=== PATIENT | female | born 1925 | race Hispanic/Latino ===

== ENCOUNTER 2017-03-08 14:28 | Inpatient (IN) | payer MEDICARE ==
--- NOTE | 2017-03-08 15:14 | RAD ---
HISTORY: cough COMPARISON: 05/31/2016 FINDINGS: LUNGS: No active pulmonary disease. PLEURA: No significant pleural effusion identified, no pneumothorax apparent. CARDIOVASCULAR: Normal. OSSEOUS STRUCTURES: No significant abnormalities. VISUALIZED UPPER ABDOMEN: Normal. OTHER FINDINGS: None. IMPRESSION: No active disease.
[2017-03-08 15:41] LABS: ADD MANUAL DIFF? NO
[2017-03-08 15:58] LABS: INR 2.44 (0.93-1.08); PARTIAL THROMBOPLASTIN TIME 34.7 Seconds (23.7-30.8)
[2017-03-08 15:59] LABS: BASO # 0.02 K/mm3 (0.0-2.0); BASO % 0.7 % (0.0-3.0); EOS # 0.1 (0.0-0.7); EOS % 2.5 % (1.5-5.0); GRAN # 0.84 (1.4-6.5); GRAN % 29.7 % (50.0-68.0); HEMATOCRIT 40.2 % (36.0-48.0); LYMPH # 1.5 (1.2-3.4); LYMPH % 52.3 % (22.0-35.0); MEAN CELL VOLUME 85.9 fL (80.0-105.0); MEAN CORPUSCULAR HEMOGLOBIN 29.5 pg (25.0-35.0); MEAN CORPUSCULAR HGB CONC 34.3 g/dl (31.0-37.0); MONO # 0.4 (0.1-0.6); MONO % 14.8 % (1.0-6.0); PLATELET COUNT 174 10^3/uL (120.0-450.0); RED CELL DISTRIBUTION WIDTH 13.5 % (11.5-14.5)
[2017-03-08 16:02] LABS: ALB/GLOB RATIO 1.1 (1.1-1.8); ALKALINE PHOSPHATASE 80 U/L (38-133); ALT/SGPT 43 U/L (7-56); AST/SGOT 32 U/L (15-39); BILIRUBIN,TOTAL 1.1 mg/dL (0.2-1.3); BLOOD UREA NITROGEN 19 mg/dL (7-21); CALCIUM 9.4 mg/dL (8.4-10.5); CARBON DIOXIDE 25 mmol/L (21-33); CHLORIDE 103 mmol/L (98-107); GFR AFRICAN-AMERICAN > 60; GLUCOSE,RANDOM 150 mg/dL (70-110); POTASSIUM 4.7 mmol/L (3.6-5.0); SODIUM 137 mmol/L (132-148); TOTAL PROTEIN 7.4 g/dL (5.8-8.3)
[2017-03-08 16:15] LABS: WHITE BLOOD COUNT 2.8 10^3/ul (4.5-11.0)
[2017-03-08 16:16] LABS: TROPONIN I < 0.01 ng/mL
--- NOTE | 2017-03-08 17:00 | ED PDOC ---
Arrival/HPI - General Chief Complaint: Back Pain Time Seen by Provider: 03/08/17 14:56 - History of Present Illness Narrative History of Present Illness (Text): 03/08/17 16:55 89-year-old female with on and off left upper back discomfort the last 2 weeks. Patient states that this usually happens in the morning, and is nonexertional but is also not positional. She denies chest pain, shortness of breath, dyspnea on exertion. Pain is unreproducible. Denies abdominal pain, nausea, vomiting, fevers or chills. Past Medical History - Provider Review Nursing Documentation Reviewed: Yes - Infectious Disease Hx of Infectious Diseases: None - Cardiac Hx Cardiac Disorders: Yes (AFIB) Hx Hypertension: Yes - Pulmonary Hx Respiratory Disorders: No - Neurological Hx Neurological Disorder: No - HEENT Hx HEENT Disorder: No Hx Cataracts: Yes - Renal Hx Renal Disorder: No - Endocrine/Metabolic Hx Endocrine Disorders: No - Hematological/Oncological Hx Blood Disorders: No - Integumentary Hx Dermatological Disorder: No - Musculoskeletal/Rheumatological Hx Rheumatoid Arthritis: Yes - Gastrointestinal Hx Gastrointestinal Disorders: Yes Hx Diverticulitis: Yes (DIVERTICULOSIS) - Genitourinary/Gynecological Hx Genitourinary Disorders: No - Psychiatric Hx Substance Use: No - Surgical History Other/Comment: RIGHT TEMPORAL SKIN CA -SX - Anesthesia Hx Anesthesia: Yes Hx Anesthesia Reactions: No Hx Malignant Hyperthermia: No Family/Social History Family/Social History: No Known Family HX Smoking Status: Never Smoked Hx Alcohol Use: No Hx Substance Use: No Allergies/Home Meds Allergies/Adverse Reactions: Allergies No Known Allergies Allergy (Verified 06/04/16 14:44) Home Medications: Home Meds Medication Instructions Recorded Confirmed Folic Acid 1 mg PO DAILY 01/02/16 06/05/16 Physical Exam - Physical Exam Narrative Physical Exam (Text): 03/08/17 16:56 - Review of Systems Constitutional: Normal. absent: Fatigue, Weight Change, Fevers Eyes: Normal ENT: denies sore throat, denies tristhmus Respiratory: Normal. absent: SOB, Cough, Sputum Cardiovascular: absent: Chest Pain, Palpitations, Syncope Gastrointestinal: Normal. absent: Abdominal Pain, Diarrhea, Nausea, Vomiting Genitourinary: Normal. absent: Dysuria, Frequency, Hematuria, vaginal bleeding Musculoskeletal: Back pain. absent: Arthralgias, Neck Pain Skin: no rashes, no erythema Neurological: absent: Focal Weakness Endocrine: Normal Hemo/Lymphatic: Normal Psychiatric: No suicidal or homicidal ideations Physical exam Patient appears age appropriate in no distress, speaking full sentences without difficulty - Systems Exam Head: Present: Atraumatic, Normocephalic Pupils: Present: PERRL Extroacular Muscles: Present: EOMI Conjunctiva: Present: Normal Mouth: Present: Moist Mucous Membranes Neck: Present: Normal Range of Motion. No: MIDLINE TENDERNESS, Paraspinal Tenderness Respiratory/Chest: Present: Clear to Auscultation, Good Air Exchange. No: Respiratory Distress, Accessory Muscle Use, Tachypneic Cardiovascular: Present: Regular Rate and Rhythm, Normal S1, S2, Peripheal Pulses Present. No: Murmurs Abdomen: Present: Normal Bowel Sounds. No: Tenderness, Distention, Peritoneal Signs, Rebound, Guarding Back: Present: Normal Inspection. No: Midline Tenderness, Paraspinal Tenderness Upper Extremity: Present: Normal Inspection. No: Cyanosis, Edema Lower Extremity: Present: Normal Inspection. No: Edema Neurological: Present: GCS=15, Speech Normal, cranial nerves II through XII fully intact with no cerebellar abnormality, neurosensory fully intact. No focal neurological deficits. Skin: Present: Warm, Dry, Normal Color. No: Rashes Lymphatic: Present: OX3, NI, NC Psychiatric: Present: Alert, Oriented x 3, Normal Insight, Normal Concentration Vital Signs Reviewed: Yes Vital Signs Temp Pulse Resp BP Pulse Ox 03/08/17 15:15 98.1 F 67 16 181/82 H 98 Temperature: Afebrile Blood Pressure: Hypertensive (Asymptomatic) Pulse: Regular Respiratory Rate: Normal Appearance: Positive for: Well-Appearing Pain Distress: None Mental Status: Positive for: Alert and Oriented X 3 Medical Decision Making ED Course and Treatment: 03/08/17 17:00 Elderly female with left back discomfort last 2 weeks. Nonexertional, nonreproducible. She has no acute findings on physical examination. EKG shows atrial fibrillation, no ST segment elevations, 90 bpm. Interpreted by me. Chest xray interpreted by ED physician shows no pneumothorax, no cardiomegaly, no infiltrates Seen in the emergency department by Dr. Lopes, asked to observe her in the hospital under his service for cardiac workup. Patient aware of and agrees with plan. - Lab Interpretations Lab Results: 03/08/17 15:30 03/08/17 15:30 Lab Results 03/08/17 15:30: Sodium 137, Potassium 4.7, Chloride 103, Carbon Dioxide 25, Anion Gap 14, BUN 19, Creatinine 1.0, Est GFR ( Amer) > 60, Est GFR (Non- Af Amer) 52, Random Glucose 150 H, Calcium 9.4, Total Bilirubin 1.1, AST 32, ALT 43, Alkaline Phosphatase 80, Lactate Dehydrogenase 511, Total Creatine Kinase 147, Troponin I < 0.01, Total Protein 7.4, Albumin 3.9, Globulin 3.5, Albumin/Globulin Ratio 1.1 03/08/17 15:30: PT 26.4 H, INR 2.44 H, APTT 34.7 H 03/08/17 15:30: WBC 2.8 L*, RBC 4.68, Hgb 13.8, Hct 40.2, MCV 85.9, MCH 29.5, MCHC 34.3, RDW 13.5, Plt Count 174, MPV 11.0, Gran % 29.7 L, Lymph % (Auto) 52.3 H, [place] % (Auto) 14.8 H, Eos % (Auto) 2.5, Baso % (Auto) 0.7, Gran # 0.84 L , Lymph # 1.5, [place] # 0.4, Eos # 0.1, Baso # 0.02 - RAD Interpretation Radiology Orders: 03/08/17 14:57 CHEST PORTABLE [RAD] Stat - Medication Orders Current Medication Orders: Discontinued Medications Aspirin (Aspirin Chewable) 324 mg PO STAT STA Stop: 03/08/17 14:59 Last Admin: 03/08/17 16:27 Dose: 324 mg Disposition/Present on Arrival - Present on Arrival Any Indicators Present on Arrival: No History of DVT/PE: No History of Uncontrolled Diabetes: No Urinary Catheter: No History of Decub. Ulcer: No History Surgical Site Infection Following: None - Disposition Have Diagnosis and Disposition been Completed?: Yes Diagnosis: Atypical chest pain Disposition: HOSPITALIZED Disposition Time: 17:04 Patient Plan: Observation Condition: STABLE Discharge Instructions (ExitCare): Chest Pain (ED) Referrals: Cynthia Lopes MD [Primary Care Provider] - Follow up with primary
[2017-03-08 17:43] LABS: URINE BILIRUBIN NEGATIVE (NEGATIVE); URINE BLOOD TRACE-INTACT (NEGATIVE); URINE GLUCOSE (UA) NEGATIVE (NEGATIVE); URINE KETONE NEGATIVE (NEGATIVE); URINE LEUKOCYTE ESTERASE SMALL Leu/uL (NEGATIVE); URINE PROTEIN 30 mg/dL (<30 mg/dL); URINE UROBILINOGEN 0.2 E.U./dL (<1 E.U./dL)
[2017-03-08 17:45] LABS: URINE APPEARANCE CLEAR (CLEAR); URINE COLOR YELLOW (YELLOW)
[2017-03-08 18:25] LABS: URINE BACTERIA SMALL (NEG); URINE EPITHELIAL CELLS 0 - 2 /hpf (0-5); URINE RBC 0 - 2 /hpf (0-2)
[2017-03-08 19:57] LABS: TROPONIN I < 0.01 ng/mL
--- NOTE | 2017-03-08 19:58 | HP ---
HISTORY OF PRESENT ILLNESS: This is an 89-year-old female who states that for the last few weeks she has been getting, during the international coordinator hours, woken up by a pain that is in her back on the left side underneath her scapular area. She states that it only seems to occur in the international coordinator hour s. It wakes her up. On Wednesday, yesterday, she states that she had the pain, got up, thought it migh t be gas, took some Gas-X and walked around for a while and the pain seemed to go away. She denies a ny palpitations, fever, chills or cough. PAST MEDICAL HISTORY: Rheumatoid arthritis with low WBC, history of diverticulosis; history of atria l fibrillation, the patient declined stress test at that time; history of hypertension. ALLERGIES: The patient has no known allergies. ACTIVE MEDICATIONS: Consist of losartan 100 mg daily, diltiazem 120 mg daily, warfarin 2.5 mg daily and sotalol 80 mg p.o. b.i.d. REVIEW OF SYSTEMS: 12 systems are reviewed. Pertinent findings is that at this time patient does no t have any discomfort. PHYSICAL EXAMINATION: VITAL SIGNS: Show a temp of 98, her pulse is 67, her blood pressure is 181/82, her respiratory rate is 16, her oxygen saturation is reported at 98% on room air. NEUROLOGIC: She is alert and oriented x 3. NECK: Supple. There is no JVD. HEART: Has an irregular S1, S2 rhythm. ABDOMEN: Soft with positive bowel sounds. EXTREMITIES: Show no evidence of edema. LUNGS: Clear. LABORATORY DATA: CBC: WBC 2.8, RBC 4.68, hemoglobin 13.9, hematocrit 40.2, platelet count is 174. PT is 26.4 with an INR 2.44, PTT is 34.7. Chemistry: Shows normal electrolytes. Sugar is 150. Mallory er functions are normal. Troponin is less than 0.01. Urinalysis shows trace intact blood, small nida kocyte esterase, small urine bacteria. Chest x-ray is reported verbally as showing no active disease . Echocardiogram is reported as showing atrial fibrillation. The clinical findings have been discussed with the Emergency Room staff, the patient. The plan is to admit the patient for cardiology consult. Check the urine for urine culture, monitor the patient in an 89-year-old female with known history of atrial fibrillation, hypertension, chest pain, rheumatoi d arthritis, low white blood cells, diverticulosis. Cynthia Lopes MD cc: [id number] TT: 03/08/2017 19:58:46 mn
--- NOTE | 2017-03-09 02:03 | CARD ---
APPROVED REPORT EKG Measurement Heart [id number] <Conclusion> Atrial flutter with variable AV block Septal infarct, age undetermined Abnormal ECG
[2017-03-09 03:01] LABS: TROPONIN I < 0.01 ng/mL
[2017-03-09 07:06] LABS: BASO # 0.02 K/mm3 (0.0-2.0); BASO % 0.7 % (0.0-3.0); EOS # 0.1 (0.0-0.7); EOS % 4.1 % (1.5-5.0); GRAN % 18.6 % (50.0-68.0); HEMATOCRIT 38.6 % (36.0-48.0); LYMPH # 1.6 (1.2-3.4); LYMPH % 60.6 % (22.0-35.0); MEAN CORPUSCULAR HEMOGLOBIN 29.6 pg (25.0-35.0); MEAN CORPUSCULAR HGB CONC 34.5 g/dl (31.0-37.0); MEAN PLATELET VOLUME 10.9 fl (7.0-11.0); MONO # 0.4 (0.1-0.6); PLATELET COUNT 160 10^3/uL (120.0-450.0); RED CELL DISTRIBUTION WIDTH 13.6 % (11.5-14.5)
[2017-03-09 07:09] LABS: INR 2.28 (0.93-1.08)
[2017-03-09 07:31] LABS: ADD MANUAL DIFF? NO; WHITE BLOOD COUNT 2.7 10^3/ul (4.5-11.0)
[2017-03-09] MEDS ORDERED: Aritificial Tears (15ml) OU PRN (08:59)
[2017-03-09] MEDS ORDERED: Lubricant Eye Drops UD OU PRN (09:30)
--- NOTE | 2017-03-09 09:39 | CON ---
DATE: 03/09/2017 INDICATIONS: Chest and back discomfort. HISTORY OF PRESENT ILLNESS: This is an 89-year-old woman with atrial fibrillation who was admitted through the Emergency Room yesterday with several days of back discomfort in the area below the left scapula and in the left side , sometimes radiating into the left chest, occurring in the director of integrated marketing hours usually between 2:30 and 5:30 in the morning. She does not describe typical anterior chest pain, exertional chest pain, dyspnea on exertion, orthopnea, PND , syncope, presyncope, lightheadedness, dizziness, vertigo, palpitations, edema , or claudication. She denies fever, chills, cough, sputum production, hemoptysis, urinary symptoms, abdominal pain, nausea, vomiting, diarrhea, constipation, or melena. PAST MEDICAL HISTORY: Notable for chronic atrial fibrillation. She is on warfarin currently therapeutic. She has a history of hypertension, diabetes, TIA, a remote subarachnoid hemorrhage, cerebrovascular disease with bilateral 20 -39% stenoses noted on a carotid ultrasound last year, and an echocardiogram 2015, which demonstrated normal LV function, moderate mitral regurgitation, tricuspid regurgitation, and moderate pulmonary hypertension. There is no history of rheumatic fever, myocardial infarction, angina, congestive heart failure, diabetes, stroke, gout. MEDICATIONS: At the time of admission included sotalol, Cardizem, warfarin, losartan. ALLERGIES: No known medication allergies. SOCIAL HISTORY: She lives at home. Her sister is nearby. She does not smoke. She does not drink. She is ambulatory. FAMILY HISTORY: Noncontributory. REVIEW OF SYSTEMS: Ten-point review of systems is otherwise unremarkable except as noted above. PHYSICAL EXAMINATION: GENERAL: She is a well-developed elderly woman sitting in bed on 3R, in no acute distress. VITAL SIGNS: Telemetry shows atrial fibrillation at 83-95 beats per minute. She is afebrile. Blood pressure 164/80, respirations 18-20, O2 sat 96-98% on room air. HEENT: Reveals no neck-vein distention, thyromegaly, or carotid bruit. Mucous membranes are moist. Conjunctivae are pink. NECK: Supple. LUNGS: Lung ramirez clear throughout. HEART: Revealed an irregular rhythm with a soft systolic murmur along the left sternal border and at the cardiac apex. ABDOMEN: Soft, bowel sounds present. No mass, organomegaly, tenderness, rebound, guarding, CVA tenderness, or palpable abdominal aortic aneurysm. EXTREMITIES: Revealed no cyanosis, clubbing, or edema. NEUROLOGIC: Awake, alert, oriented, and intact. SKIN: Warm and dry. No rash or cellulitis. PSYCHIATRIC: Normal as to mood and affect. LABORATORY RESULTS AND IMAGING: A portable chest x-ray reveals no active disease. EKG demonstrates atrial fibrillation with poor R-wave progression, nonspecific ST wave changes, possible anterior septal myocardial infarction. No change from previous EKG. White count is low at 2700. Hemoglobin, hematocrit, and platelet count are normal. PTT 24.6. INR 2.28. PTT 34.7. Electrolytes, BUN, creatinine, blood sugar, LFTs, 3 sets of cardiac enzymes all unremarkable. Urinalysis is noted. IMPRESSION: This is an 89-year-old woman with left subscapular and back discomfort, sometimes left-sided chest discomfort usually occurring in the director of integrated marketing hours, waking her from sleep. She does not have typical exertional symptoms during the day or with activities. She has a history of chronic atrial fibrillation, TIA, hypertension, diabetes, and a remote subarachnoid hemorrhage. There was cerebrovascular disease documented on a carotid ultrasound last year, and she has moderate mitral regurgitation, tricuspid regurgitation, and pulmonary hypertension on echocardiogram last year. At this time, she can be out of bed and ambulate. I would recommend culturing her urine. I would continue her current medications including sotalol, which can be changed to metoprolol since she is in chronic atrial fibrillation, Cardizem, warfarin, and losartan. I discussed a nuclear stress test with her, but she declined at this time. She states that at her age, she does not want to be aggressive in looking for medical problems. I will discuss her case further with you. Do not hesitate to call if there are any questions. Boyd Jerome MD cc: [id number] TT: 03/09/2017 09:39:17 Confirmation # [id number] Dictation # [id number] jn SLAVA
[2017-03-09] MEDS: diltiaZEM 120 mg/24 Hours CD Cap PO SCH (10:08)
--- NOTE | 2017-03-09 12:22 | US ---
PROCEDURE: Ultrasound of the Kidneys HISTORY: LT FLANK PAIN COMPARISON: None available. TECHNIQUE: Sonogram of the kidneys. FINDINGS: RIGHT KIDNEY: Measures: 9.5 cm. Normal in size, contour and echogenicity. No stone, solid mass lesion or hydronephrosis visualized. LEFT KIDNEY: Measures: 9.9 cm. Normal in size, contour and echogenicity. No stone, solid mass lesion or hydronephrosis visualized. OTHER FINDINGS: None. IMPRESSION: Unremarkable renal sonogram.
[2017-03-09 13:55] LABS: T3 UPTAKE 41.1 % (23.0-41.0); T4 7.6 ug/dL (5.5-11.0)
[2017-03-09 14:09] LABS: THYROID STIMULATING HORMONE 4.38 mIU/mL (0.46-4.68)
--- NOTE | 2017-03-09 14:53 | PN ---
DATE: 03/09/2017 An 89-year-old female, states that she had a somewhat comfortable night, was gotten up several times to pass urine during the night. Denies any chest pain at this time. Nursing staff relates that david hodge were no particular problems. VITAL SIGNS: Show a temp of 97.7, her blood pressure is 164/80, oxygen sat is 96% on room air. LABORATORY DATA: Shows a WBC of 2.7, RBC 4.49, hemoglobin 13, hematocrit 38, platelet count 160. Th e urine culture is growing greater than 100,000 gram-negative rods. PHYSICAL EXAMINATION: GENERAL: She is alert and oriented x 3. NECK: Supple. LUNGS: Clear. HEART: Has an irregular S1, S2 rhythm. ABDOMEN: Soft with positive bowel sounds. EXTREMITIES: Show no evidence of edema. The patient is awaiting a cardiology evaluation and ultrasound of the kidneys has been requested. Xavier hodge has a past medical history of hypertension, transient ischemic attack, remote subarachnoid hemorrha ge, carotid disease, normal left ventricular function with mitral and tricuspid regurgitation, modera te pulmonary hypertension. She has a history of rheumatoid arthritis and atrial fibrillation. The hamilton leon clinical status has been discussed with the patient. LABORATORY DATA: Her chemistries show cardiac enzymes are negative x 3. Her TSH level is 4.38. We will continue current level of care, request an infectious disease consult, await cardiology consu lt and get ultrasound of the kidneys. This is an 89-year-old female who states that she has been awakened during the night and the early mo rning hours with pain underneath the left scapula and over the left flank area. Cynthia Lopes MD cc: [id number] TT: 03/09/2017 14:53:00 Confirmation # [id number] Dictation # [id number] en
[2017-03-09 16:42] VITALS: O2SAT 98
[2017-03-09 17:47] LABS: FOLATE 19.3 ng/mL
[2017-03-10 07:27] LABS: BASO # 0.01 K/mm3 (0.0-2.0); BASO % 0.4 % (0.0-3.0); EOS # 0.1 (0.0-0.7); GRAN # 0.45 (1.4-6.5); GRAN % 17.1 % (50.0-68.0); HEMATOCRIT 39.2 % (36.0-48.0); LYMPH # 1.6 (1.2-3.4); LYMPH % 60.5 % (22.0-35.0); MEAN CELL VOLUME 85.2 fL (80.0-105.0); MEAN CORPUSCULAR HEMOGLOBIN 28.7 pg (25.0-35.0); MEAN CORPUSCULAR HGB CONC 33.7 g/dl (31.0-37.0); MEAN PLATELET VOLUME 10.6 fl (7.0-11.0); MONO # 0.5 (0.1-0.6); PLATELET COUNT 164 10^3/uL (120.0-450.0); RED CELL DISTRIBUTION WIDTH 13.6 % (11.5-14.5)
[2017-03-10 07:35] LABS: INR 2.31 (0.93-1.08)
[2017-03-10 08:10] LABS: WHITE BLOOD COUNT 2.6 10^3/ul (4.5-11.0)
[2017-03-10 08:11] LABS: ADD MANUAL DIFF? NO
[2017-03-10 08:27] VITALS: BP 152/78; RESP 19; TEMP 97.8
[2017-03-10] MEDS ORDERED: ceFAZolin 1 gm in NS 1 GM/100 ML BAG IVPB SCH (08:30)
--- NOTE | 2017-03-10 08:30 | PN ---
DATE: 03/10/2017 SUBJECTIVE: The patient is seen sitting in a chair on 3R. She is currently comfortable. She did mcconnell ve some left flank pain earlier after ambulating to the bathroom. She denies any chest pain. CURRENT MEDICATIONS: Include sotalol 80 mg b.i.d., diltiazem 120 mg daily, Coumadin, Cozaar 100 mg d aily and Rocephin. OBJECTIVE: GENERAL: She is a very elderly woman who appears comfortable at the present time. VITAL SIGNS: Her blood pressure is 160/80 with a pulse of 76 and irregularly irregular, respirations are 14. HEENT: No JVD. CHEST: A few scattered rhonchi. HEART: Irregularly irregular rhythm with a systolic murmur at the left sternal border and base. ABDOMEN: Soft, nontender, normoactive bowel sounds. EXTREMITIES: No edema. DIAGNOSTIC DATA: Morning blood work is pending. Last INR is 2.28. TSH was 4.38. IMPRESSION: 1. Back pain with some chest pain yesterday. Symptoms appear most consistent noncardiac cause. John bt angina at this time. 2. History of chronic atrial fibrillation. 3. Prior transient ischemic attack. 4. History of hypertension and diabetes. 5. Moderate mitral and tricuspid regurgitation. RECOMMENDATIONS: As she remains in atrial fibrillation, metoprolol could be substituted for sotalol as it does not appear to be effective in maintaining sinus rhythm. The rest of her medications shoul d continue unchanged. Given her advanced age, she defers any further cardiac workup at this time, wh ich appears reasonable and appropriate. We would be happy to follow along as an outpatient. From a cardiac standpoint, she appears stable for discharge at this time. Vernon Case MD cc: [id number] TT: 03/10/2017 08:29:42 Confirmation # [id number] Dictation # [id number] mn
[2017-03-10] MEDS: diltiaZEM 120 mg/24 Hours CD Cap PO SCH (09:10)
[2017-03-10] MEDS ORDERED: cefTRIAXone 1 gm 1 GM/100 ML BAG IVPB SCH (10:00)
[2017-03-10 12:01] VITALS: PULSE 97
--- NOTE | 2017-03-10 19:23 | CP.PCM.CON ---
History of Present Illness - History of Present Illness History of Present Illness: 89 year old female with PMH of atrial fibrillation, cataracts, history of skin cancer, rheumatoid arthritis, diverticulosis, subarachnoid hemorrhage, peripheral edema came in because of left flank pain, and pain just underneath her scapula. She has also been complaining of urinary frequency without fever or chills, no hematuria, no dysuria. She denies abdominal pain, no chest pain, no SOB, no headache or dizziness, no sore throat, no cough or rhinorrhea. Ultrasound of the kidneys has been done which did not show hydronephrosis or neprholithiasis. Urinalysis shows pyuria and the urine cx shows E. coli. Infectious Diseases consult is requested to further evaluate and manage. Review of Systems - Review of Systems All systems: reviewed and no additional remarkable complaints except (as per HPI ) Past Patient History - Infectious Disease Hx of Infectious Diseases: None - Past Social History Smoking Status: Never Smoked - CARDIAC Hx Cardia Arrhythmia: Yes (A FIB) Hx Hypertension: Yes Hx Peripheral Edema: Yes - PULMONARY Hx Respiratory Disorders: No - NEUROLOGICAL Hx Neurological Disorder: Yes (SUBARACHNOID HEMORRHAGE 40 YEARS AGO, NO DEFICITS ) - HEENT Hx HEENT Problems: Yes (WEARS GLASSES) Hx Cataracts: Yes - RENAL Hx Chronic Kidney Disease: No - ENDOCRINE/METABOLIC Hx Endocrine Disorders: No - HEMATOLOGICAL/ONCOLOGICAL Hx Blood Disorders: No - INTEGUMENTARY Hx Dermatological Problems: Yes (SKIN CA) Other/Comment: HX OF CAUTERIZED SKIN CA LESION 2016. CURRENT LESION ON FOREHEAD SCHEDULED TO BE CAUTERIZED 03/11/17 BY PT'S TIMBER TRIMMER - MUSCULOSKELETAL/RHEUMATOLOGICAL Hx Musculoskeletal Disorders: Yes Hx Arthritis: Yes (RHEUMATOID ARTHRITIS) Hx Falls: Yes - GASTROINTESTINAL Hx Diverticulitis: Yes (DIVERTICULOSIS) - GENITOURINARY/GYNECOLOGICAL Hx Genitourinary Disorders: No - PSYCHIATRIC Hx Substance Use: No - SURGICAL HISTORY Hx Surgeries: No - ANESTHESIA Hx Anesthesia: Yes Hx Anesthesia Reactions: No Hx Malignant Hyperthermia: No Meds Home Medications: Home Medication List Medication Instructions Recorded Confirmed Type Amoxicillin/Clavulanate [Augmentin 875 mg PO BID #14 tab 03/10/17 Rx 875 MG-125 MG] Allergies/Adverse Reactions: Allergies Allergy/AdvReac Type Severity Reaction Status Date / Time No Known Allergies Allergy Verified 06/04/16 14:44 - Medications Medications: Current Medications Artificial Tears (Refresh Opth Soln) 0.3 ml OU Q4H PRN PRN Reason: Dry eyes Diltiazem HCl (Cardizem Cd) 120 mg PO DAILY [facility] Last Admin: 03/09/17 10:08 Dose: 120 mg Losartan Potassium (Cozaar) 100 mg PO DAILY [facility] Last Admin: 03/09/17 10:08 Dose: 100 mg Sotalol HCl (Betapace) 80 mg PO BID [facility] Last Admin: 03/09/17 18:52 Dose: 80 mg Warfarin Sodium (Coumadin) 2.5 mg PO 1800 [facility] PRN Reason: Protocol Last Admin: 03/09/17 18:53 Dose: 2.5 mg Physical Exam - Constitutional Appears: Non-toxic, No Acute Distress - Head Exam Head Exam: NORMAL INSPECTION - ENT Exam ENT Exam: Mucous Membranes Moist - Neck Exam Neck exam: Negative for: Lymphadenopathy, Meningismus - Respiratory Exam Respiratory Exam: Decreased Breath Sounds - Cardiovascular Exam Cardiovascular Exam: +S1, +S2 - GI/Abdominal Exam GI & Abdominal Exam: Soft. absent: Tenderness Results - Vital Signs Recent Vital Signs: Last Vital Signs Temp 98.3 F 03/09/17 16:00 Pulse 67 03/09/17 18:52 Resp 18 03/09/17 16:00 BP 159/80 H 03/09/17 18:52 Pulse Ox 98 03/09/17 16:00 - Labs Result Diagrams: 03/10/17 06:45 03/08/17 15:30 Assessment & Plan - Assessment and Plan (Free Text) Plan: Assessment Urinary tract infection ,lower tract with E. coli, beasley-sensitive atrial fibrillation cataracts history of skin cancer rheumatoid arthritis diverticulosis subarachnoid hemorrhage peripheral edema Plan Patient started on Cefazolin - as discussed with Dr. Lopes, the patient can be discharged on Augmentin for 5-7 days
--- NOTE | 2017-03-20 11:44 | DS ---
This is an 89-year-old female who was admitted in to [facility] with complaints of backac he and chest pain. The patient was seen by cardiology and infectious disease while in the hospital. Cardiac enzymes were negative x 3. Cardiology offered the patient a stress test, but she declined. She had a history of atrial fibrillation. She had an ultrasound of her kidneys which was reported a s being unremarkable. She had a urine culture which grew out E. coli. She was seen by ID and placed on Augmentin for outpatient followup. The patient would continue at home on losartan 100 mg daily, diltiazem 120 mg daily, warfarin 2.5 mg daily, Betapace 80 mg b.i.d. and Augmentin 875 b.i.d. She wi ll be followed as an outpatient at home and would follow up her labs. She had rheumatoid arthritis w ith a history of low WBCs, believed by the plywood layup line core layer to be secondary to that. Her PT on dischar ge was 25 with an INR of 2.31. The patient was fully aware of all the clinical findings that had bee n found in the hospital, the treatment plan and recommendations. She had an EKG which showed her in atrial flutter which was okay by cardiology. She had a chest x-ray which showed no active disease. Cynthia Lopes MD cc: [id number] TT: 03/20/2017 11:43:13 ct
== END 2017-03-10 14:14 | disposition home health service (06) | DRG 690 ==
LOC: ED 14:28 → ERH 17:04 → 3RNO 19:31 → OBSVTOIN 03-09 14:08
PROVIDERS: ADMIT Internal Medicine; ATTEND Internal Medicine
DX: N39.0 Urinary tract infection, site not specified (principal); B96.20 Unspecified Escherichia coli [E. coli] as the cause of diseases classified elsewhere; R07.89 Other chest pain; M54.9 Dorsalgia, unspecified; I27.2 Other secondary pulmonary hypertension; I48.2 Chronic atrial fibrillation; I10 Essential (primary) hypertension; E11.9 Type 2 diabetes mellitus without complications; M06.9 Rheumatoid arthritis, unspecified; K57.90 Diverticulosis of intestine, part unspecified, without perforation or abscess without bleeding; I08.1 Rheumatic disorders of both mitral and tricuspid valves; H26.9 Unspecified cataract; Z86.73 Personal history of transient ischemic attack (TIA), and cerebral infarction without residual deficits; Z85.828 Personal history of other malignant neoplasm of skin